=== PATIENT | female | born 1960 | race African-American/Black ===

== ENCOUNTER 2021-07-06 19:50 | Emergency (ER) | payer MEDICAID, OTHER ==
[~2021-07-06] VITALS: Ht 175.3 cm; Wt 105.7 kg
[2021-07-06] MEDS ORDERED: KETOROLAC TROMETH 60MG/2ML VIAL IM ONE (22:30)
[2021-07-06 22:48] VITALS: BP 136/60
== END 2021-07-06 22:41 | disposition home or self-care (01) ==
LOC: ER 20:00
DX: S39.012A Strain of muscle, fascia and tendon of lower back, initial encounter (principal); F17.210 Nicotine dependence, cigarettes, uncomplicated; Z88.5 Allergy status to narcotic agent; Z88.0 Allergy status to penicillin; V49.9XXA Car occupant (driver) (passenger) injured in unspecified traffic accident, initial encounter; Y93.89 Activity, other specified; Y92.410 Unspecified street and highway as the place of occurrence of the external cause; Y99.8 Other external cause status